=== PATIENT | male | born 1930 | race Caucasian/White ===

== ENCOUNTER → 2016-08-22 | Outpatient (CLI) | payer OTHER, BC | LOC: BMCIMAGING 11:21 | PROVIDERS: ATTEND Internal Medicine | DX: M51.36 Other intervertebral disc degeneration, lumbar region (principal); M25.551 Pain in right hip; M25.552 Pain in left hip ==

== ENCOUNTER → 2016-10-27 | Outpatient (CLI) | payer OTHER, BC | LOC: FIMAGING 07:45 | PROVIDERS: ATTEND Physician Assistant Medical | DX: M51.36 Other intervertebral disc degeneration, lumbar region (principal); M43.16 Spondylolisthesis, lumbar region; M12.88 Other specific arthropathies, not elsewhere classified, other specified site; M48.06 Spinal stenosis, lumbar region; M99.73 Connective tissue and disc stenosis of intervertebral foramina of lumbar region; M51.26 Other intervertebral disc displacement, lumbar region ==

== ENCOUNTER → 2017-09-24 | Outpatient (CLI) | payer OTHER, BC | LOC: BMCIMAGING 14:41 | PROVIDERS: ATTEND Family Medicine | DX: S49.91XA Unspecified injury of right shoulder and upper arm, initial encounter (principal); S69.92XA Unspecified injury of left wrist, hand and finger(s), initial encounter ==